=== PATIENT | female | born 2005 | race Caucasian/White ===

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

== ENCOUNTER 2023-06-19 01:52 | Emergency (ER) | payer BC, SELFPAY ==
[2023-06-19 02:04] VITALS: BP 137/83; PULSE 93; RESP 18; TEMP 36.6; O2SAT 96
[2023-06-19] MEDS: LORazepam 2 mg/mL INJ 1 mL 1 MG IVP (02:41)
[2023-06-19] MEDS: ondansetron 2 mg/ML SDV 2 mL 4 MG IVP (02:41)
[2023-06-19] MEDS: sodium chloride 0.9% 1,000 ML 999 ML IV (02:42)
--- NOTE | 2023-06-19 02:50 | ED_ITS ---
HPI - Abdominal Pain General: Chief Complaint: Abdominal Pain Stated Complaint: abd pain Time Seen by Provider: 06/19/23 02:08 Source: patient History of Present Illness: 18-year-old female with a history of ulcers she says. She complains of epigastric pain that is now mostly resolved. It started around 1 AM when she woke up with the pain. She has felt nauseated on and off for the past 24 hours. She relates this to restarting anxiety medication. No fever, no vomiting. She does not believe she is . MD elicited complaint: abdominal pain Pertinent past history: other Onset (ago): hour(s) Pain Consistency: now resolved Location: Epigastric Severity: moderate Quality: stabbing Radiation: none Migration to: no migration Relieving factors: nothing Associated Symptoms: Reports dyspepsia, nausea and poor appetite; Denies constipation, diarrhea, dysuria, fever(s), melena and vomiting Review of Systems Const: Denies: fever(s) Card: Denies: chest pain Resp: Denies: dyspnea GI: Reports: abdominal pain and nausea; Denies: vomiting, diarrhea, constipation or melena : Denies: flank pain or dysuria Physical Exam Const: COMMON NORMALS: no acute distress GENERAL APPEARANCE: cooperative and anxious; not ill appearing and not frail appearing HENMT: COMMON NORMALS: normocephalic, atraumatic and Normal external nose present HEAD & SCALP: normocephalic and atraumatic FACE & SINUS: normal facial exam and face symmetric NOSE: Normal external nose present Eye: COMMON NORMALS: Equal, round and reactive pupils present and EOMs intact bilaterally PUPIL: Yes Equal, round and reactive pupils present Neck/C-Spine: GENERAL: Yes trachea midline Chest: CHEST: Yes Symmetrical chest wall rise Resp: COMMON NORMALS: normal respiratory effort, No retractions, No use of accessory muscles and clear to auscultation bilaterally AUSCULTATION: clear to auscultation bilaterally Cardio: COMMON NORMALS: regular rate and regular rhythm RATE: regular rate RHYTHM: regular rhythm GI: COMMON NORMALS: Normal to inspection, nondistended, normoactive bowel sounds present Extremity: COMMON NORMALS: no pedal edema Neuro: ALEKSANDR COMA SCALE: document GCS findings [place] coma scale eye opening: Spontaneous Aleksandr coma scale verbal response: Orientated [place] coma scale motor response: Obey commands [place] coma scale total score: 15 SENSO RY EXAM: Yes extremities (intact) Psych: COMMON NORMALS: speech normal SPEECH: Yes normal speech Skin: COMMON NORMALS: no rashes or lesions noted GENERAL SKIN EXAM: no rashes or lesions noted Course Vital Signs: Vital signs: Vital Signs Temperature 98 F 06/19/23 02:04 Pulse Rate 96 06/19/23 04:04 Respiratory Rate 18 06/19/23 04:04 Blood Pressure 117/74 06/19/23 04:04 Pulse Oximetry 98 06/19/23 04:04 MDM - Abdominal Pain Medical Decision Making Pain is resolved. Anxiety is improved following Ativan. Laboratory is not remarkable including urinalysis. She is not . CRP is 3. She will be allowed home. Lab Data 06/19/23 02:31 06/19/23 02:31 Labs/Radiology: Laboratory Results WBC 9.8 10^3/uL (4.5-13.0) 06/19/23 02:31 RBC 4.55 10^6/uL (4.1-5.3) 06/19/23 02:31 Hgb 11.2 g/dL (11.5-15.3) L 06/19/23 02:31 Hct 35.3 % (37.0-47.0) L 06/19/23 02:31 MCV 77.6 fl (81-99) L 06/19/23 02:31 MCH 24.6 pg (28.0-34.0) L 06/19/23 02:31 MCHC 31.7 g/dL (30.0-36.0) 06/19/23 02:31 RDW 15.0 % (12.1-15.1) 06/19/23 02:31 Plt Count 322 10^3/cmm (130-400) 06/19/23 02:31 MPV 9.9 fL (7.4-10.4) 06/19/23 02:31 Neut % (Auto) 64.7 % 06/19/23 02:31 Lymph % (Auto) 27.4 % 06/19/23 02:31 [place] % (Auto) 5.0 % 06/19/23 02:31 Eos % (Auto) 2.0 % 06/19/23 02:31 Baso % (Auto) 0.6 % 06/19/23 02:31 Neut # (Auto) 6.31 10^3/uL (1.8-8.0) 06/19/23 02:31 Lymph # (Auto) 2.7 10^3/uL (1.5-6.5) 06/19/23 02:31 [place] # (Auto) 0.5 10^3/uL (0.2-0.9) 06/19/23 02:31 Eos # (Auto) 0.2 10^3/uL (0.0-0.8) 06/19/23 02:31 Baso # (Auto) 0.1 10^3/uL (0.0-0.1) 06/19/23 02:31 Nucleated RBC % (auto) 0 % 06/19/23 02:31 Nucleated RBCs # 0.0 /100WBC 06/19/23 02:31 Sodium 138 mmol/L (136-145) 06/19/23 02:31 Potassium 4.2 mmol/L (3.5-5.1) 06/19/23 02:31 Chloride 105 mmol/L (98-107) 06/19/23 02:31 Carbon Dioxide 22 mmol/L (22-29) 06/19/23 02:31 Anion Gap 15.2 (5-19) 06/19/23 02:31 BUN 10 mg/dL (6-20) 06/19/23 02:31 Creatinine 0.8 mg/dL (0.5-0.9) 06/19/23 02:31 GFR Calculation 91.4 mL/min (90-130) 06/19/23 02:31 Glucose 92 mg/dL (65-115) 06/19/23 02:31 Calculated Osmolality 285 mOsm/kg (285-295) 06/19/23 02:31 Lactic Acid 0.6 mmol/L (0.5-2.2) 06/19/23 02:31 Calcium 9.1 mg/dL (8.5-10.5) 06/19/23 02:31 Total Bilirubin 0.3 mg/dL (0.15-1.2) 06/19/23 02:31 AST 17 U/L (0-32) 06/19/23 02:31 ALT 12 U/L (0-33) 06/19/23 02:31 Alkaline Phosphatase 80 U/L (35-105) 06/19/23 02:31 C-Reactive Protein 3.0 mg/L (0.0-4.9) 06/19/23 02:31 Total Protein 6.5 g/dL (6.6-8.7) L 06/19/23 02:31 Albumin 4.1 g/dL (3.5-5.2) 06/19/23 02:31 Globulin 2.4 g/dL (1.3-4.6) 06/19/23 02:31 Lipase 15 U/L (13-60) 06/19/23 02:31 HCG, Qual Negative (Negative) 06/19/23 02:31 Urine Color Yellow (Yellow) 06/19/23 03:08 Urine Appearance Clear (CLEAR) 06/19/23 03:08 Urine pH 5 (5-7) 06/19/23 03:08 Ur Specific [place] 1.020 (1.005-1.030) 06/19/23 03:08 Urine Protein Neg (Negative) 06/19/23 03:08 Urine Glucose (UA) Norm (Normal) 06/19/23 03:08 Urine Ketones Negative (Negative) 06/19/23 03:08 Urine Blood Neg (Negative) 06/19/23 03:08 Urine Nitrate Negative (Negative) 06/19/23 03:08 Urine Bilirubin Neg (Negative) 06/19/23 03:08 Urine Urobilinogen Norm mg/dL (Negative) 06/19/23 03:08 Ur Leukocyte Esterase Negative (Negative) 06/19/23 03:08 Discharge Plan Discharge Patient Disposition: Home Clinical Impression: Abdominal pain, epigastric Condition: Stable Prescriptions: Continued ondansetron 4 mg tablet,disintegrating 4 mg PO Q8H PRN (Reason: nausea and vomiting) Qty: 10 0RF Discharge Orders: Discharge ED (Routine); Ordered 06/19/23 Ordered By: Saul Aparicio Referrals: Parisa Feliz MD [Primary Care Provider] - 1-3 days Patient Instructions: Abdominal Pain (ED), Opioid Safety, Pain Management Activity Restrictions/Additional Instructions: Return for fever, vomiting liquids or medications, worsening pain, other concern ing symptoms. Coding Level of Care Code ED Parent Educator for Owen Parikh
[2023-06-19] MEDS: aluminum-mag hydrox-simethicon 30 ML, sucralfate oral liq 1 GM PO (03:03)
[2023-06-19 03:08] LABS: HCG, Serum Qual Negative (Negative)
[2023-06-19 03:18] LABS: Basophils # 0.1 10^3/uL (0.0-0.1); Basophils % 0.6 %; Eosinophils # 0.2 10^3/uL (0.0-0.8); Hematocrit 35.3 % (37.0-47.0); Hemoglobin 11.2 g/dL (11.5-15.3); Lymphocytes # 2.7 10^3/uL (1.5-6.5); Lymphocytes % 27.4 %; Mean Corpuscular HGB Conc 31.7 g/dL (30.0-36.0); Mean Corpuscular Hemoglobin 24.6 pg (28.0-34.0); Mean Corpuscular Volume 77.6 fl (81-99); Mean Platelet Volume 9.9 fL (7.4-10.4); Monocytes # 0.5 10^3/uL (0.2-0.9); Neutrophils # 6.31 10^3/uL (1.8-8.0); Neutrophils % 64.7 %; Nucleated Red Blood Cells % 0 %; Platelet Count 322 10^3/cmm (130-400); Red Blood Count 4.55 10^6/uL (4.1-5.3); White Blood Count 9.8 10^3/uL (4.5-13.0)
[2023-06-19 03:19] LABS: Add Urine Microscopic? NO; Charge for UA Resulting for Rev
[2023-06-19 03:21] LABS: Lactic Sepsis W/Reflex 0.6 mmol/L (0.5-2.2)
[2023-06-19 03:22] LABS: Bilirubin Urine Neg (Negative); Blood Urine Neg (Negative); Glucose Urine UA Norm (Normal); Ketones Urine Negative (Negative); Leukocyte Esterase Urine Negative (Negative); Nitrate Urine Negative (Negative); Protein Urine Neg (Negative); Urine Appearance Clear (CLEAR); Urine Color Yellow (Yellow); Urobilinogen Urine Norm (Negative); pH Urine 5 (5-7)
[2023-06-19 03:22] LABS: Alanine Aminotransferase 12 U/L (0-33); Albumin Level 4.1 g/dL (3.5-5.2); Alkaline Phosphatase 80 U/L (35-105); Anion Gap 15.2 (5-19); Aspartate Amino Transferase 17 U/L (0-32); Blood Urea Nitrogen 10 mg/dL (6-20); Calcium 9.1 mg/dL (8.5-10.5); Carbon Dioxide 22 mmol/L (22-29); Chloride 105 mmol/L (98-107); Globulin 2.4 g/dL (1.3-4.6); Glomerular Filtration Rate 91.4 mL/min (90-130); Glucose 92 mg/dL (65-115); Lipase 15 U/L (13-60); Osmolality Calculated 285 mOsm/kg (285-295); Potassium 4.2 mmol/L (3.5-5.1); Sodium 138 mmol/L (136-145); Total Bilirubin 0.3 mg/dL (0.15-1.2); Total Protein 6.5 g/dL (6.6-8.7)
[2023-06-19 04:04] VITALS: BP 117/74; PULSE 96; RESP 18; O2SAT 98
== END 2023-06-19 04:09 | disposition home or self-care (01) ==
PROVIDERS: Emergency Provider Emergency Medicine; PCP Family Medicine
DX: R10.13 Epigastric pain (principal)
CPT/HCPCS: 80053; 81003; 83605; 83690; 84703; 85025; 86140; 96374; 96375; 99284; J2060; J2405; J7030